=== PATIENT | male | born 1965 | race Caucasian/White ===

== ENCOUNTER 2016-12-07 13:42 | Emergency (ER) | payer BC | END 2016-12-07 15:55 | disposition home or self-care (01) | LOC: ER1 13:42 | DX: S93.602A Unspecified sprain of left foot, initial encounter (principal); S93.515A Sprain of interphalangeal joint of left lesser toe(s), initial encounter; E11.40 Type 2 diabetes mellitus with diabetic neuropathy, unspecified; F17.228 Nicotine dependence, chewing tobacco, with other nicotine-induced disorders; W22.8XXA Striking against or struck by other objects, initial encounter | CPT/HCPCS: 73630; 96372; 99283; J1885 ==

== ENCOUNTER → 2021-02-11 | Outpatient (CLI) | payer BC | LOC: KOH-I 02-05 13:45 | DX: M54.17 Radiculopathy, lumbosacral region (principal); M47.816 Spondylosis without myelopathy or radiculopathy, lumbar region | CPT/HCPCS: 72148 ==